=== PATIENT | female | born 1955 | race Caucasian/White ===

== ENCOUNTER 2021-02-08 01:25 | Emergency (ER) | payer OTHER ==
[2021-02-08 02:10] LABS: HEMOGLOBIN 14.3 gm/dl (12.3-15.3); RED BLOOD COUNT 4.63 M/UL (4.00-5.10); WHITE BLOOD COUNT 16.3 K/UL (4.5-11.0)
[2021-02-08 02:30] LABS: BUN/CREATININE RATIO 30 (0-10)
[2021-02-08] MEDS ORDERED: CHRONULAC20 GM/30 M PO (03:13)
== END 2021-02-08 03:30 | disposition home or self-care (01) ==
LOC: ER1 01:25
PROVIDERS: Physician Assistant
DX: R06.00 Dyspnea, unspecified (principal); K59.00 Constipation, unspecified; I10 Essential (primary) hypertension; F17.210 Nicotine dependence, cigarettes, uncomplicated; Z88.1 Allergy status to other antibiotic agents
CPT/HCPCS: 71045; 80053; 82550; 82553; 83615; 83874; 83880; 84484; 85025; 85379; 86140; 87040; 93005; 99285

== ENCOUNTER → 2021-12-26 | Outpatient (CLI) | payer MEDICARE, OTHER ==
[~2021-12-26] MED LIST: ALBUTEROL2.5 MG/3 M INH; BENZONATATE100 MG PO; CHRONULAC20 GM/30 M PO
== END ==
LOC: CT 16:00
DX: Z01.812 Encounter for preprocedural laboratory examination (principal); I26.99 Other pulmonary embolism without acute cor pulmonale; R91.1 Solitary pulmonary nodule
CPT/HCPCS: 36415; 71275; 82565; 84520; Q9967

== ENCOUNTER 2021-12-28 12:57 | Emergency (ER) | payer MEDICARE, OTHER ==
[~2021-12-28 12:57] MED LIST changes: -ALBUTEROL2.5 MG/3 M INH; -BENZONATATE100 MG PO
[2021-12-28 13:27] LABS: HEMOGLOBIN 13.6 gm/dl (12.3-15.3); RED BLOOD COUNT 4.59 M/UL (4.00-5.10); WHITE BLOOD COUNT 8.3 K/UL (4.5-11.0)
[2021-12-28 13:58] LABS: BUN/CREATININE RATIO 17 (0-10)
[2021-12-28] MEDS ORDERED: ALBUTEROL2.5 MG/3 M INH (14:30)
[2021-12-28] MEDS ORDERED: BENZONATATE100 MG PO (14:30)
== END 2021-12-28 16:27 | disposition home or self-care (01) ==
LOC: ER1 12:57
PROVIDERS: Emergency Medicine
DX: U07.1 COVID-19 (principal); I10 Essential (primary) hypertension
CPT/HCPCS: 71046; 80053; 82550; 82553; 84484; 85025; 93005; 99285; U0002